=== PATIENT | female | born 2000 | race Caucasian/White ===

== ENCOUNTER 2022-01-26 12:19 | Emergency (ER) | payer SELFPAY ==
[~2022-01-26] VITALS: Ht 167.6 cm; Wt 65.8 kg
[2022-01-26 12:21] VITALS: BP 116/78
--- NOTE | 2022-01-26 12:23 | NUR ---
AT BEDSIDE FOR EVAL.
[2022-01-26] MEDS ORDERED: IBUP-1955 PO (12:27)
[2022-01-26] MEDS ORDERED: AMOX-427 PO (12:27)
--- NOTE | 2022-01-26 12:32 | NUR ---
RAPID STREP SPECIMEN OBTAINED AND SENT TO LAB.
--- NOTE | 2022-01-26 12:36 | NUR ---
Patient discharged to home in stable condition. Written and verbal after care instructions given. Patient verbalizes understanding of instruction.
== END 2022-01-26 12:37 | disposition home or self-care (01) ==
LOC: ER 12:20
DX: J02.0 Streptococcal pharyngitis (principal); F32.A Depression, unspecified; F41.9 Anxiety disorder, unspecified
CPT/HCPCS: 86403-TC; 87070-TC